=== PATIENT | male | born 1940 | race Caucasian/White ===

== ENCOUNTER 2016-11-30 06:53 | Day surgery (SDC) | payer MEDICARE, OTHER ==
[2008-11-09 06:08] VITALS: BP 110/67
[~2016-11-30] VITALS: Ht 172.7 cm; Wt 101.4 kg
[~2016-11-30 06:53] MED LIST: CALCIUM/MAGNESI1 T14 PO; CELEBREX; CO Q-1050 MG PO; EPA/GLA1 SGL PO; FERROUS SU325 MG/TAB PO; FLONASE NASAL S16 GM NS; FOLIC ACID; GLUCOSAMINE & C1 CA1 PO; MVI; NEXIUM 40MG40 MG PO; PRILOSEC10 MG PO; ROBAXIN 50500 MG/TAB PO; TRICOR 48MG48 MG PO; VIAGRA 25MG TAB25 MG PO; VITAMIN C250250 MG PO; ZOCOR; [UNRECOGNIZED DRUG - OTHER] PO
[2016-11-30 07:33] VITALS: BP 134/83; PULSE 60; TEMP 97.6
[2016-11-30] MEDS ORDERED: NEXIUM 20MG20 MG PO (07:40)
[2016-11-30] MEDS ORDERED: NEXIUM 40MG40 MG PO (07:40)
[2016-11-30] MEDS ORDERED: ZESTRIL 10MG10 MG PO (07:41)
[2016-11-30] MEDS ORDERED: MULTI VITAMINS1 TAB PO (07:42)
[2016-11-30] MEDS ORDERED: FISH OIL 1000MG1 CAP PO (07:43)
[2016-11-30] MEDS ORDERED: VITAMIN C500 MG PO (07:44)
[2016-11-30] MEDS ORDERED: GLUCOSAMINE/CHO1 CA4 PO (07:45)
[2016-11-30] MEDS ORDERED: CALCIUM-MAGNES1 EAC1 PO (07:47)
[2016-11-30] MEDS ORDERED: POMEGRANATE WIT1 CAP PO (07:47)
[2016-11-30] MEDS ORDERED: CARAFATE 1GM1 G PO (07:50)
[2016-11-30] MEDS ORDERED: FORTESTA10 MG/0.5 TP (07:50)
[2016-11-30] MEDS ORDERED: ZETIA 10MG TAB10 MG PO (07:51)
[2016-11-30] MEDS ORDERED: ZYRTEC 10MG10 MG PO (07:52)
[2016-11-30] MEDS ORDERED: ALEVE 220MG220 MG PO (07:53)
[2016-11-30] MEDS ORDERED: TYLENOL 500MG500 MG PO (07:55)
[2016-11-30 08:58] VITALS: BP 135/74; PULSE 66
[2016-11-30 09:15] VITALS: BP 135/78; PULSE 78; TEMP 98
[2016-11-30 09:30] VITALS: BP 129/66; PULSE 70
[2016-11-30 12:36] VITALS: BP 101/75; PULSE 56
== END 2016-11-30 09:43 | disposition home or self-care (01) ==
LOC: SDCO 06:53
DX: R19.4 Change in bowel habit (principal); R10.9 Unspecified abdominal pain; R19.7 Diarrhea, unspecified; R63.4 Abnormal weight loss; K57.30 Diverticulosis of large intestine without perforation or abscess without bleeding; K64.8 Other hemorrhoids; K21.9 Gastro-esophageal reflux disease without esophagitis; K30 Functional dyspepsia; Z96.60 Presence of unspecified orthopedic joint implant; Z87.891 Personal history of nicotine dependence; E78.00 Pure hypercholesterolemia, unspecified; R14.0 Abdominal distension (gaseous); M54.2 Cervicalgia; K29.70 Gastritis, unspecified, without bleeding; R53.1 Weakness
CPT/HCPCS: OP; J2250; J3010; J7030

== ENCOUNTER → 2018-08-06 | Outpatient (CLI) | payer MEDICARE, OTHER ==
[~2018-08-06] MED LIST changes: +ALEVE 220MG220 MG PO; +CALCIUM-MAGNES1 EAC1 PO; +CARAFATE 1GM1 G PO; +FISH OIL 1000MG1 CAP PO; +FORTESTA10 MG/0.5 TP; +GLUCOSAMINE/CHO1 CA4 PO; +MULTI VITAMINS1 TAB PO; +NEXIUM 20MG20 MG PO; +POMEGRANATE WIT1 CAP PO; +TYLENOL 500MG500 MG PO; +VITAMIN C500 MG PO; +ZESTRIL 10MG10 MG PO; +ZETIA 10MG TAB10 MG PO; +ZYRTEC 10MG10 MG PO
== END ==
LOC: ZCOL.LAB 13:49
DX: R09.81 Nasal congestion (principal)

== ENCOUNTER 2020-02-09 14:18 | Emergency (ER) | payer MEDICARE, OTHER ==
[2008-11-09 06:08] VITALS: BP 110/67
[~2020-02-09] VITALS: Ht 172.7 cm; Wt 97.7 kg
[2020-02-09 14:22] VITALS: TEMP 97.5
[2020-02-09] MEDS ORDERED: CELEBREX 200MG200 MG PO (14:43)
[2020-02-09] MEDS ORDERED: PROTONIX 40MG T40 MG PO (14:43)
[2020-02-09] MEDS ORDERED: COREG 6.256.25 MG/TA PO (14:44)
[2020-02-09] MEDS ORDERED: ZETIA 10MG TAB10 MG PO (14:44)
[2020-02-09] MEDS ORDERED: NORVASC 5MG5 MG/TAB PO (14:44)
[2020-02-09 14:59] LABS: BASO # 0.1 (0.0-0.2); BASO % 0.9 % (0.0-2.0); EOS # 0.2 (0.0-0.7); GRAN # 4.7 (1.4-6.5); HEMATOCRIT 47.7 % (42.0-52.0); HEMOGLOBIN 16.1 g/dl (13.5-18.0); LYMPH # 1.4 (1.2-3.4); LYMPH % 20.2 % (20.0-51.0); MEAN CELL VOLUME 95 fl (80.0-100.0); MEAN CORPUSCULAR HEMOGLOBIN 32 pg (27.0-31.0); MEAN CORPUSCULAR HGB CONC 34 g/dl (33.0-37.0); MEAN PLATELET VOLUME 9.7 fl (7.4-10.4); MONO # 0.4 (0.1-0.6); MONO % 6.5 % (1.7-9.3); PLATELET COUNT 181 K/mm3 (130-400); RED BLOOD COUNT 5.05 M/mm3 (4.20-5.60); REDCELL DISTRIBUTION WIDTH-CV 12.5 % (11.5-14.5)
[2020-02-09 15:01] LABS: PROTHROMBIN TIME 11.1 SECONDS (9.7-12.8)
[2020-02-09 15:03] LABS: PARTIAL THROMBOPLASTIN TIME 39.3 SECONDS (26.0-37.0)
[2020-02-09 15:09] LABS: ALANINE AMINOTRANSFERASE 27 U/L (4-49); ALBUMIN 4.5 gm/dL (3.5-5.0); ALKALINE PHOSPHATASE 57 U/L (50-136); ANION GAP 11 mmol/L (7-16); AST,SGOT 39 U/L (15-37); BILIRUBIN,TOTAL 0.7 mg/dL (0.0-1.0); BLOOD UREA NITROGEN 22 mg/dL (9-20); CALCIUM 8.7 mg/dL (8.4-10.2); CARBON DIOXIDE 25 mmol/L (22-30); CHLORIDE 102 mmol/L (98-107); CREATININE, serum 1.41 (0.66-1.25); GLUCOSE 122 mg/dL (74-106); POTASSIUM 4.2 mmol/L (3.4-5.0); SODIUM 137 mmol/L (137-145); TOTAL PROTEIN 7.4 gm/dL (6.4-8.2)
[2020-02-09 15:30] LABS: C-REACTIVE PROTEIN < 0.5 mg/dL (0.0-0.9); TROPONIN-I < 0.012 ng/mL (0.000-0.035)
[2020-02-09] MEDS ORDERED: ANTIVERT 25MG25 MG PO (17:44)
[2020-02-09 17:54] VITALS: BP 158/79; PULSE 64
== END 2020-02-09 17:54 | disposition home or self-care (01) ==
LOC: COL.ER 14:18
PROVIDERS: Emergency Medicine
DX: R42 Dizziness and giddiness (principal); I13.10 Hypertensive heart and chronic kidney disease without heart failure, with stage 1 through stage 4 chronic kidney disease, or unspecified chronic kidney disease; K21.9 Gastro-esophageal reflux disease without esophagitis; N18.9 Chronic kidney disease, unspecified
CPT/HCPCS: J2060; J2405; J7030; Q9967

== ENCOUNTER 2021-09-22 01:58 | Inpatient (IN) | payer MEDICARE, OTHER ==
[~2021-09-22] VITALS: Ht 172.7 cm; Wt 93.8 kg
[2021-09-22] VITALS (18 sets, daily range): BP systolic 114–159; BP diastolic 43–75; PULSE 69–95; TEMP 97.7–98.3
[~2021-09-22 01:58] MED LIST changes: +ANTIVERT 25MG25 MG PO; +CELEBREX 200MG200 MG PO; +COREG 6.256.25 MG/TA PO; +NORVASC 5MG5 MG/TAB PO; +PEPCID 20MG TAB20 MG PO
--- NOTE | 2021-09-22 03:07 | NUR ---
RECEIVED REPORT FROM [facility] NURSE, ADRIA WITH EMS TRANSPORTING PATIENT, LEFT THEIR FACILITY AROUND 0300. WAITING FOR PATIENT ARRIVAL FOR ADMIT TO ROOM 343.
--- NOTE | 2021-09-22 03:23 | NUR ---
RECEIVED BRIEF UPDATE FROM EMS REGARDING PATIENT'S RECENT VITALS, IVF INFUSING AND ETA IN ABOUT 20 MIN.
--- NOTE | 2021-09-22 04:03 | NUR ---
PATIENT ARRIVED TO HOSP ROOM 343 VIA EMS AND INFORMED HOSPITALIST OF PATIENT'S ARRIVAL TO ROOM 343.
--- NOTE | 2021-09-22 04:39 | NUR ---
PERSONAL ITEMS WITH PATIENT, FULL UPPER DENTURES, L HEARING AID CURRENTLY WITH PATIENT ON ADMIT.
[2021-09-22] MEDS ORDERED: LASIX 40MG TABL40 MG PO (05:23)
[2021-09-22] MEDS ORDERED: CORDARONE200 MG/TAB PO (05:26)
[2021-09-22] MEDS ORDERED: TOPROL XL 25MG25 MG PO (05:32)
[2021-09-22] MEDS ORDERED: NYSTATIN OR100 MU/ML PO (05:35)
[2021-09-22 06:57] LABS: BASO % 0.2 % (0.0-2.0); EOS # 0.1 K/mm3 (0.0-0.7); EOS % 0.4 % (0.0-4.0); GRAN # 12.6 K/mm3 (1.4-6.5); GRAN % 84.9 % (42.2-75.2); HEMATOCRIT 43.5 % (42.0-52.0); HEMOGLOBIN 14.8 g/dl (13.5-18.0); LYMPH # 1.2 K/mm3 (1.2-3.4); MEAN CELL VOLUME 96 fl (80.0-100.0); MEAN CORPUSCULAR HEMOGLOBIN 33 pg (27-31); MEAN CORPUSCULAR HGB CONC 34 g/dl (33.0-37.0); MONO # 0.8 K/mm3 (0.1-0.6); MONO % 5.6 % (1.7-9.3); PLATELET COUNT 268 K/mm3 (130-400); RED BLOOD COUNT 4.55 M/mm3 (4.20-5.60); REDCELL DISTRIBUTION WIDTH-CV 12.3 % (11.5-14.5)
[2021-09-22 07:12] LABS: ALBUMIN 2.7 gm/dL (3.4-4.8); BILIRUBIN,TOTAL 0.4 mg/dL (0.2-1.2); CALCIUM 8.4 mg/dL (8.4-10.2); CREATININE, serum 1.92 mg/dL (0.72-1.25); POTASSIUM 4.8 mmol/L (3.5-4.5); TOTAL PROTEIN 5.9 gm/dL (6.2-8.1)
--- NOTE | 2021-09-22 07:12 | NUR ---
CHANGE OF SHIFT REPORT GIVEN TO DAY SHIFT RNLISE.
--- NOTE | 2021-09-22 09:56 | NUR ---
Received report from night shift supervisor. Patient alert and oriented x4. VSS. Patient reports pain 9/10, across abdomen. Requests pain medication. Assessment performed. UA collected. Keely NPO. Call light within reach.
--- NOTE | 2021-09-22 10:16 | NUR ---
Field Contact Person met with patient to discuss discharge planning. Patient lives in [place] with his , Katya (ph#[phone]) who is at bedside. Patient sees Dr. Gonzalez for primary care and obtains medications from [facility]. Patient has an oxygen concentrator at home from [facility] in [place], however reports he only needs it for ambulation. Patient states he doesn't use it most of the time. Patient reports no other DME usage and advised he is indpendent with [employer]. Patient has Advance Directives in EMR. Patient plans to return home at time of discharge. Discharge Plan: Home
--- NOTE | 2021-09-22 11:10 | NUR ---
SEE MERGE FOR ALL MEDICATION ADMINISTRATION TIMES, INTRA AND POST SEDATION ASSESSMENTS
--- NOTE | 2021-09-22 11:37 | NUR ---
Patient leaving floor for heart cath procedure.
[2021-09-22 18:05] LABS: HEMATOCRIT 44.9 % (42.0-52.0)
--- NOTE | 2021-09-22 21:00 | NUR ---
Pt. sitting up in bed. Pt. is A&OX3, assessment complete. PICC to rt. upper arm patent. Compression band to rt. radial cath site removed at this time. Pt. has tolerated release of compression, see cath doc. Bandaid applied to site. Pt. denies pain or other needs, call light within reach.
[2021-09-23] VITALS (7 sets, daily range): BP systolic 115–128; BP diastolic 54–64; PULSE 80–95; TEMP 98–99.3
[2021-09-23 06:45] LABS: BASO # 0.1 K/mm3 (0.0-0.2); BASO % 0.3 % (0.0-2.0); EOS # 0.1 K/mm3 (0.0-0.7); EOS % 0.7 % (0.0-4.0); GRAN # 12.3 K/mm3 (1.4-6.5); GRAN % 84.1 % (42.2-75.2); HEMATOCRIT 41.9 % (42.0-52.0); HEMOGLOBIN 14.2 g/dl (13.5-18.0); LYMPH # 1.3 K/mm3 (1.2-3.4); MEAN CELL VOLUME 95 fl (80.0-100.0); MEAN CORPUSCULAR HEMOGLOBIN 32 pg (27-31); MEAN CORPUSCULAR HGB CONC 34 g/dl (33.0-37.0); MEAN PLATELET VOLUME 9.8 fl (7.4-10.4); MONO # 0.7 K/mm3 (0.1-0.6); PLATELET COUNT 226 K/mm3 (130-400); RED BLOOD COUNT 4.41 M/mm3 (4.20-5.60); REDCELL DISTRIBUTION WIDTH-CV 12.5 % (11.5-14.5)
[2021-09-23 07:15] LABS: CALCIUM 7.8 mg/dL (8.4-10.2); CREATININE, serum 1.63 mg/dL (0.72-1.25); MAGNESIUM 1.9 mg/dL (1.6-2.6); POTASSIUM 4.9 mmol/L (3.5-4.5)
--- NOTE | 2021-09-23 12:07 | NUR ---
Initial visit; Patient Indisposed, Fitness Professional spoke with his daughter letting her know of the availability of Spiritual Care at our hospital for both her and her Father. She thanked Fitness Professional who offered God's blessings for them.
--- NOTE | 2021-09-23 13:28 | NUR ---
Received report from hourly shift. Patient alert and oriented x3. VSS. Patient here for diverticulitis/small bowel perf. Patient had heart cath procedure yesterday. Has right radial arm band on. All air has been released. Band left on to remind patient to not bend or place pressure on right wrist. Patient had PT assist with ambulation today. Patient tolerated well, patient was repeatedly reminded to use assistive device. PICC to right upper arm, good blood return. IV fluids running at 75. Patient was advanced to clear liquid diet. Assessment performed. AM meds administered. Patient denies pain at this time. Call light within reach.
--- NOTE | 2021-09-23 21:30 | NUR ---
Pt. sitting up in bed. Pt. is A&OX3, assessment complete. PICC to rt. upper arm patent. Pt. denies pain or other needs at this time. call light within reach
[2021-09-24 00:14] VITALS: BP 129/50; PULSE 77; TEMP 98.5
[2021-09-24 04:20] VITALS: BP 112/56; PULSE 81; TEMP 98
[2021-09-24 07:12] LABS: BASO % 0.2 % (0.0-2.0); EOS # 0.1 K/mm3 (0.0-0.7); EOS % 0.6 % (0.0-4.0); GRAN # 12.4 K/mm3 (1.4-6.5); GRAN % 86.1 % (42.2-75.2); HEMATOCRIT 40.4 % (42.0-52.0); HEMOGLOBIN 13.6 g/dl (13.5-18.0); LYMPH # 1.2 K/mm3 (1.2-3.4); MEAN CELL VOLUME 97 fl (80.0-100.0); MEAN CORPUSCULAR HEMOGLOBIN 33 pg (27-31); MEAN CORPUSCULAR HGB CONC 34 g/dl (33.0-37.0); MEAN PLATELET VOLUME 10.1 fl (7.4-10.4); MONO # 0.6 K/mm3 (0.1-0.6); MONO % 4.2 % (1.7-9.3); PLATELET COUNT 196 K/mm3 (130-400); RED BLOOD COUNT 4.18 M/mm3 (4.20-5.60); REDCELL DISTRIBUTION WIDTH-CV 12.6 % (11.5-14.5)
[2021-09-24 07:30] LABS: BILIRUBIN,TOTAL 0.5 mg/dL (0.2-1.2); CREATININE, serum 1.72 mg/dL (0.72-1.25); POTASSIUM 4.3 mmol/L (3.5-4.5)
[2021-09-24 08:00] VITALS: BP 131/61; PULSE 84; TEMP 98.3
[2021-09-24 10:48] LABS: COLLECTION METHOD CLEAN CATCH
[2021-09-24 11:08] LABS: MUCOUS Present (NOT PRESENT); PH 5 (5-8); SQUAMOUS EPITHELIAL None Seen /hpf (0-10); URINE APPEARANCE Cloudy (CLEAR/HAZY); URINE BACTERIA Rare /hpf (NONE SEEN); URINE BILIRUBIN Negative (NEGATIVE); URINE BLOOD Negative (NEGATIVE); URINE COLOR Amber (YELLOW); URINE GLUCOSE Negative (NEGATIVE); URINE KETONE 1+ (NEGATIVE); URINE LEUKOCYTE ESTERASE Trace (NEGATIVE); URINE NITRATE Negative (NEGATIVE); URINE PROTEIN(semi-quant) 2+ (NEGATIVE); URINE RBC 0-2 /hpf (0-2); URINE UROBILINOGEN Negative (NEGATIVE)
[2021-09-24 12:00] VITALS: BP 152/82; PULSE 82; TEMP 98.1
--- NOTE | 2021-09-24 15:14 | NUR ---
Received report from maintenance mechanic 2nd shift. Patient alert and oriented x3. VSS. Assessment performed. AM meds administered. PICC to right upper arm, flushes with good return. Patient reports pain in left lower quadrant. Denies need for pain medication. Patient ambulated around halls x3 today. Patient has passed gas, but no BM at this point. Call light within reach.
[2021-09-24 15:46] VITALS: BP 108/53; PULSE 71; TEMP 98.2
[2021-09-24 20:27] VITALS: BP 123/49; PULSE 72; TEMP 98.1
--- NOTE | 2021-09-24 21:09 | NUR ---
PT RESTING IN BED. HAVING MILD LLQ ABD PAIN. DENIES NEED FOR PAIN MED. ASSISTED TO BR. VOIDED. STILL NEED STOOL FOR OCC BLOOD. PT AWARE. 1/2NS AT 75CC.HR TO RT PICC LINE. 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 CALL LIGHT IN REACH. BED ALARM SET.
[2021-09-25 00:01] VITALS: BP 124/69; PULSE 66; TEMP 98
--- NOTE | 2021-09-25 01:53 | NUR ---
PT SLEEPING. NO DISTRESS. NO BM YET.
[2021-09-25 04:37] VITALS: BP 130/70; PULSE 68; TEMP 98.5
--- NOTE | 2021-09-25 06:22 | NUR ---
LAB DRAWN PER PICC. SENT TO LAB. PT RELATES FEELS BETTER THIS AM.
[2021-09-25 06:45] LABS: BASO % 0.2 % (0.0-2.0); EOS # 0.1 K/mm3 (0.0-0.7); GRAN # 8.3 K/mm3 (1.4-6.5); GRAN % 84.2 % (42.2-75.2); HEMOGLOBIN 12.3 g/dl (13.5-18.0); LYMPH # 0.9 K/mm3 (1.2-3.4); LYMPH % 8.7 % (20.0-51.0); MEAN CELL VOLUME 96 fl (80.0-100.0); MEAN CORPUSCULAR HEMOGLOBIN 32 pg (27-31); MEAN CORPUSCULAR HGB CONC 33 g/dl (33.0-37.0); MEAN PLATELET VOLUME 9.9 fl (7.4-10.4); MONO # 0.5 K/mm3 (0.1-0.6); MONO % 4.9 % (1.7-9.3); PLATELET COUNT 182 K/mm3 (130-400); RED BLOOD COUNT 3.84 M/mm3 (4.20-5.60); REDCELL DISTRIBUTION WIDTH-CV 12.5 % (11.5-14.5)
--- NOTE | 2021-09-25 07:03 | NUR ---
Shift report received from cushion padder RN. Pt. resting supine in bed. Call light is within his reach
[2021-09-25 07:05] LABS: CALCIUM 7.7 mg/dL (8.4-10.2); CREATININE, serum 1.51 mg/dL (0.72-1.25); POTASSIUM 4.3 mmol/L (3.5-4.5)
[2021-09-25 07:06] LABS: HEMATOCRIT 36.9 % (42.0-52.0)
[2021-09-25 07:22] VITALS: BP 137/65; PULSE 70; TEMP 97.3
--- NOTE | 2021-09-25 10:06 | NUR ---
Pt. assisted to ambulate to bathroom using fww. SBA provided. Pt. has not yet had a bowel movement. He denies pain or discomfort. Denies nausea, abd. pain. IVF continues infusing to PICC right upper arm. Pt. has a visitor at the bedside. Denies further needs. Call light is within his reach
[2021-09-25 11:27] VITALS: BP 124/70; PULSE 63; TEMP 98
[2021-09-25 16:39] VITALS: BP 129/61; PULSE 67; TEMP 98
[2021-09-25 17:56] LABS: HEMATOCRIT 39.7 % (42.0-52.0); HEMOGLOBIN 13.6 g/dl (13.5-18.0)
--- NOTE | 2021-09-25 19:15 | NUR ---
RECEIVED CHANGE OF SHIFT REPORT FROM DAY SHIFT RN.
[2021-09-25 20:14] VITALS: BP 104/54; PULSE 72; TEMP 97.8
[2021-09-26 00:31] VITALS: BP 123/56; PULSE 66; TEMP 97.4
[2021-09-26 04:58] VITALS: BP 121/72; PULSE 75; TEMP 97.4
[2021-09-26 06:40] LABS: BASO % 0.4 % (0.0-2.0); EOS # 0.1 K/mm3 (0.0-0.7); EOS % 1.1 % (0.0-4.0); GRAN # 6.5 K/mm3 (1.4-6.5); GRAN % 80.1 % (42.2-75.2); HEMOGLOBIN 12.5 g/dl (13.5-18.0); LYMPH # 0.9 K/mm3 (1.2-3.4); LYMPH % 11.1 % (20.0-51.0); MEAN CELL VOLUME 95 fl (80.0-100.0); MEAN CORPUSCULAR HEMOGLOBIN 32 pg (27-31); MEAN CORPUSCULAR HGB CONC 34 g/dl (33.0-37.0); MEAN PLATELET VOLUME 10.3 fl (7.4-10.4); MONO # 0.5 K/mm3 (0.1-0.6); MONO % 6.2 % (1.7-9.3); PLATELET COUNT 177 K/mm3 (130-400); RED BLOOD COUNT 3.87 M/mm3 (4.20-5.60); REDCELL DISTRIBUTION WIDTH-CV 12.6 % (11.5-14.5)
[2021-09-26 06:42] LABS: HEMATOCRIT 36.9 % (42.0-52.0)
[2021-09-26 06:46] LABS: CALCIUM 8.2 mg/dL (8.4-10.2); CREATININE, serum 1.45 mg/dL (0.72-1.25); POTASSIUM 4.5 mmol/L (3.5-4.5)
--- NOTE | 2021-09-26 07:06 | NUR ---
CHANGE OF SHIFT REPORT GIVEN TO DAY SHIFT RNLISE.
[2021-09-26 07:44] VITALS: BP 119/92; PULSE 61; TEMP 98.4
--- NOTE | 2021-09-26 09:19 | NUR ---
[employer] Business Analyst attended clinical rounds with the team and patient is a possible discharge today. ELAINE met with patient and his who advised they still plan to return home at time of discharge. ELAINE discussed Home Health services with patient who declined at this time. ELAINE presented and reviewed IM form with patient who verbalized understanding and provided signature. ELAINE placed form in chart and provided copy to patient. Discharge Plan: Home, declined HH
--- NOTE | 2021-09-26 09:58 | NUR ---
Patient alert and oriented x3. VSS. Patient here for diverticulitis. Patient denies pain at this time. Assessment performed. AM meds administered. PICC to right UA. Flushes well with good blood return. Patient in bed with call light near.
[2021-09-26 11:55] VITALS: BP 115/57; PULSE 64; TEMP 98.8
[2021-09-26] MEDS ORDERED: AMOXICILLIN 8751 TAB PO (15:01)
[2021-09-26] MEDS ORDERED: GLUCOPHAGE500 MG/TAB PO (15:04)
[2021-09-26] MEDS ORDERED: PROTONIX 40MG T40 MG PO (15:08)
--- NOTE | 2021-09-26 17:10 | NUR ---
Discharge instructions provided, patient education given. Follow up appts discussed. PICC Dc'd. Patient tolerated well. Patient denied any questions or concerns. Patient escorted out via wheelchair.
== END 2021-09-26 16:30 | disposition home or self-care (01) | DRG 392 ==
LOC: MEDICAL 01:58 → SURG 03:55
PROVIDERS: Physician Assistant; Student in an Organized Health Care Education/Training Program; Surgery; ADMIT Internal Medicine
PROC: 4A023N7 Measurement of Cardiac Sampling and Pressure, Left Heart, Percutaneous Approach (ICD-10-PCS; principal; 2021-09-22)
PROC: B2111ZZ Fluoroscopy of Multiple Coronary Arteries using Low Osmolar Contrast (ICD-10-PCS; 2021-09-22)
PROC: 02HV33Z Insertion of Infusion Device into Superior Vena Cava, Percutaneous Approach (ICD-10-PCS; 2021-09-22)
DX: K57.12 Diverticulitis of small intestine without perforation or abscess without bleeding (principal); K92.1 Melena; I13.0 Hypertensive heart and chronic kidney disease with heart failure and stage 1 through stage 4 chronic kidney disease, or unspecified chronic kidney disease; I50.22 Chronic systolic (congestive) heart failure; N17.9 Acute kidney failure, unspecified; I42.9 Cardiomyopathy, unspecified; K21.9 Gastro-esophageal reflux disease without esophagitis; K22.70 Barrett's esophagus without dysplasia; E78.5 Hyperlipidemia, unspecified; I48.0 Paroxysmal atrial fibrillation; N18.30 Chronic kidney disease, stage 3 unspecified; M19.90 Unspecified osteoarthritis, unspecified site; E11.65 Type 2 diabetes mellitus with hyperglycemia; Z87.891 Personal history of nicotine dependence
CPT/HCPCS: 99223-AI; 99233-AI; 99239; C1751; C1892; J0692; J1644; J1815; J2250; J2270; J3010; J7030

== ENCOUNTER → 2021-11-24 | Outpatient (CLI) | payer MEDICARE, OTHER ==
[~2021-11-24] MED LIST changes: +AMOXICILLIN 8751 TAB PO; +CORDARONE200 MG/TAB PO; +GLUCOPHAGE500 MG/TAB PO; +LASIX 40MG TABL40 MG PO; +NYSTATIN OR100 MU/ML PO; +PROTONIX 40MG T40 MG PO; +TOPROL XL 25MG25 MG PO
== END ==
LOC: COL.RAD 06:11
DX: K57.92 Diverticulitis of intestine, part unspecified, without perforation or abscess without bleeding (principal); K21.00 Gastro-esophageal reflux disease with esophagitis, without bleeding
CPT/HCPCS: Q9967

== ENCOUNTER → 2023-01-11 | Outpatient (CLI) | payer MEDICARE, OTHER | LOC: COL.VAS 12:09 | DX: I27.20 Pulmonary hypertension, unspecified (principal) ==